=== PATIENT | male | born 1995 | race Caucasian/White ===

== ENCOUNTER → 2017-07-18 | Outpatient (CLI) | payer OTHER ==
--- NOTE | 2017-07-18 15:45 | DIAGNOSTIC IMAGING REPORT ---
L FINGER(S) MIN 2 VIEWS CLINICAL HISTORY: 22 years-old Male presenting with LEFT 1ST DIGIT PAIN. TECHNIQUE: Frontal, oblique, and lateral views of the left first finger were obtained. COMPARISON: None. FINDINGS: Tiny ossific fracture fragments at the radial base of the proximal phalanx of the first finger. No malalignment. No advanced degenerative change. No radiographic soft tissue abnormality. IMPRESSION: Findings concerning for avulsion fracture fragment at the radial base of the proximal phalanx of the first finger. MR could be considered to exclude injury to the radial collateral ligament. Electronically signed by: Jamil Soria M.D. 07/18/2017 3:44 PM Dictated Date/Time: 07/18/2017 3:41 PM
== END | disposition home or self-care (01) ==
LOC: C.RDSM 15:08
PROVIDERS: ATTEND Physician Assistant
DX: M79.645 Pain in left finger(s) (principal)

== ENCOUNTER → 2017-07-30 | Outpatient (CLI) | payer OTHER ==
--- NOTE | 2017-07-30 09:27 | DIAGNOSTIC IMAGING REPORT ---
L HAND MIN 3 VIEWS CLINICAL HISTORY: 22 years-old Male presenting with LEFT HAND PAIN. TECHNIQUE: Frontal, oblique, and lateral views of the left hand were obtained. COMPARISON: 07/18/2017. FINDINGS: Redemonstration of the avulsion fracture fragment at the radial base of the proximal phalanx of the left first finger. No additional fracture. The fragment is mildly displaced and rotated as on prior exam. No malalignment at the first metacarpophalangeal joint. No advanced degenerative change. No radiographic soft tissue abnormality. IMPRESSION: Redemonstration of the mildly displaced and rotated avulsion fracture at the radial base of the proximal phalanx of the left first finger. MRI could be considered to exclude injury to the radial collateral ligament.. Electronically signed by: Jamil Soria M.D. 07/30/2017 9:26 AM Dictated Date/Time: 07/30/2017 9:24 AM
== END | disposition home or self-care (01) ==
LOC: C.RDSM 13:53
PROVIDERS: ATTEND Physician Assistant
DX: S62.92XA Unspecified fracture of left hand, initial encounter for closed fracture (principal); X58.XXXA Exposure to other specified factors, initial encounter